=== PATIENT | male | born 1975 | race Caucasian/White ===

== ENCOUNTER 2017-10-18 11:00 | Outpatient (RCR) | payer OTHER, SELFPAY ==
--- NOTE | 2017-09-28 12:49 | HP.PTEVAL_ITS ---
Patient's Visit Information SULEMA DESHPANDE is a 42 year old M referred to Physical Therapy by Gustavo Cadena with a diagnosis of Right Shoulder Strain. Date of Evaluation: 09/28/17 Physical Therapist: Anni Lloyd, PT - Visit Plan Frequency: 2x /Week Duration: 3 Weeks Plan: Therapeutic exercises and activties to target BUE, specifically RUE, strength, endurance and ROM. Modalities and Manual as needed to decrease pain and increase ROM. Incorporate HEP to promote maintainence and independence. - Subjective Subjective: Patient presents in therapy today with chief complaint of right shoulder pain. He reports that initial injury was back in college but noticing pain 6 months ago. States the reaching fast to catch a tennis ball causes horrible pain, reaching up to close the sun roof and jerking motions increase pain. He is unable to throw overhead and needs to throw underhand with his daughter. He feels like his strength is down and doesnt feel confident in the motion. Reports no known mechanism of injury and thought he was sleeping on it wrong. Over the last couple weeks noticing popping more in the shoulder. On occasion will have slight numbness and tingling down the arm. Has not done anything for the pain. No X-ray or MRI. PMHx: No reported heart, respiratory, neuro or musculoskeletal conditions. Have bad acid reflux - Pain right shoulder Pain Intensity (Out of 10): 1 Pain Intensity Range: 1, 9 Comment: quick reaching movements increase pain - Objective Posture: Sitting upright with shoulders squared. Left shoulder slightly lower than right. Sensation: Intact to light touch. Appearance: No apparent swelling. Palpation: No tenderness or pain to palpation of biceps, shoulder or tricep area. Range of Motion: Left shoulder abduction 170*, flexion 180*, extension 70*, IR 90*, ER 70* Right shoulder abduction 75*, flexion 140*, extension 55*, IR 50*, ER 35*; PROM of left shoulder limited due to patient muscle guarding. Slight popping sensation with passive motion. Strength: BUE grossly 5/5 except right shoulder flexion 4/5, right shoulder abduction 4-/5, B IR 4+/5 and B ER 4-/5; B middle trap 4/5, R lower trap 3/5, B rhomboids 4/5. Functional Mobility: Difficulty reaching overhead using compensatory movements including shrugging shoulder up to help reach on shelf. Special Tests: Patient showing positive signs for subscapularis involvement - Special Tests R Shoulder Lift Off Test - Subscapular Tear: Positive R Shoulder Empty Can - SS: Positive R Shoulder Belly Press - SupScap: Negative R Shoulder Neer - Impingement: Negative R Shoulder Biceps Load Test - Labrum: Negative - Goals Goal 1:: Patient will increase R shoulder ROM to match left shoulder for improved mobility Goal Time Frame: 2-4 Weeks Goal 2:: Patient will increase R shoulder strength grossly 5/5 for improved performance with ADLs Goal Time Frame: 2-4 Weeks Goal 3:: Patient will reach overhead to place an object on the shelf 5 consecutive repetitions without compensatory movements or pain Goal Time Frame: 2-4 Weeks Goal 4:: Patient will demonstrate independence with HEP Goal Time Frame: 2-4 Weeks - Rehabilitation Potential Physical Therapy Diagnosis: Muscle Weakness, Limited Range of Motion Rehabilitation Potential: Fair - Anticipated Interventions Patient/Client Instruction: Educate patient on: Condition, Plan of Care For the Purpose of:: To decrease pain, To increase ROM, To improve muscle performance and motor function, To improve ability to perform ADL's, To improve ability of physical actions for home/community/work/leisure, To increase flexibility/ROM Therapeutic Exercise to Include: Strength training, Endurance training, Body mechanics, Postural training, Flexibilty training, Passive ROM, Active ROM, Scapular Strength/Stabilization For the Purpose of:: To increase ROM, To improve muscle performance and motor function, To improve ability to perform ADL's, To improve ability of physical actions for home/community/work/leisure, To increase flexibility/ROM Functional Training to Include: ADL Training For the Purpose of:: To improve muscle performance and motor function, To improve ability to perform ADL's Comment: massage not covered by insurance For the Purpose of:: To decrease pain, To increase ROM Iontophoresis (with Dexamethozone, with Acetic acid): No - not covered by insurance For the Purpose of:: To decrease pain, To increase ROM, To increase flexibility/ ROM Thank you for the opportunity to evaluate your patient. For Medicare and Medicare HMO plans, please review the plan of care and approve it. It will need to be FAXED BACK to us at [phone] for Medicare purposes. Please let me know if there are questions or concerns regarding this plan of care. Physician Signature: Date:
--- NOTE | 2017-10-18 11:28 | HP.PTDCSUM_ITS ---
HP - PT D/C Summary It has been my pleasure to treat SULEMA DESHPANDE under orders from Gustavo Cadena, for the diagnosis of Right Shoulder Strain for a total of 7 visit(s ). Discharge Date: Please see the following information for a summary of their discharge status. - Subjective Subjective: I am no worse, but i am not really better either - Pain right shoulder Pain Intensity (Out of 10): 1 - Overall Improvement % Improvement: 0 - Objective Objective/Function: R shoulder ROM: flex= 137, abd= 95, ER= 33, IR is moderately limited. R shoulder MMT: abd and ER= 4-/5, flex and IR 5/5. R shoulder pain ranges /10 to 9/10. Pt has remained relatively the same since beginning Rx - Goals Goal 1:: Patient will increase R shoulder ROM to match left shoulder for improved mobility Goal Progress: Not Progressing Goal 2:: Patient will increase R shoulder strength grossly 5/5 for improved performance with ADLs Goal Progress: Not Progressing Goal 3:: Patient will reach overhead to place an object on the shelf 5 consecutive repetitions without compensatory movements or pain Goal Progress: Not Progressing Goal 4:: Patient will demonstrate independence with HEP Goal Progress: Goal Met - Plan Plan: discontinue, RTD - D/C Information If there are questions or concerns regarding this patient's physical therapy, please feel free to call me at [phone]. Thank you for the referral of this patient. Sincerely, Aaron Aguillon, PT,
== END 2017-10-18 11:30 | disposition home or self-care (01) ==
LOC: PT 11:00
PROVIDERS: Family Provider Family Medicine; PCP Family Medicine; Visit Provider Family Medicine
DX: S46.911D Strain of unspecified muscle, fascia and tendon at shoulder and upper arm level, right arm, subsequent encounter (principal)
CPT/HCPCS: 97110; 97140; 97161; 97162; 97530

== ENCOUNTER → 2019-10-21 | Outpatient (CLI) | payer OTHER, SELFPAY ==
[2013-11-13 21:20] VITALS: BMI 29.9
--- NOTE | 2019-10-21 | GASB_PTH ---
PATIENT: SULEMA DESHPANDE LOC: [facility] #:[id number] AGE/SX: 44/M ROOM: RE10/21/[address]: Dr. Mata Krishnan MD : 1975 BED: DIS: 10/21/2019 SPEC #: [id number] RECD: 10/21/19 15:06 STATUS: BRANDIE REGINA #: [id number] CAITLYN: 10/21/19 00:[address]: Mata Krishnan DEPT: SURGICAL PATHOLOGY RECD BY: Bartolo Uribe ENTERED: 10/22/19 08:47 SP TYPE: Gastric Bx OTHR DR: Dr. Gustavo Cadena MD Tissues: A - Gastric mucous membrane B - Esophagus, NOS C - Esophagus, NOS Procedures: Surgery Specimen Level IV HEADER OPERATION: EGD / colonoscopy PRE-OP DIAGNOSIS: K92.1, K62.5, K21.9 TISSUE SUBMITTED: A - Antral biopsy H/H, B - Distal esophageal biopsy, C - Mid esophageal biopsy MICROSCOPIC DIAGNOSIS A. Antral biopsy: Mild gastritis. See microscopic description and comment. B. Distal esophageal biopsy: A fragment of squamous epithelium with changes consistent with gastroesophageal reflux disease. C. Mid esophagus, biopsy: Fragments of squamous epithelium, no pathologic diagnosis. SJ:rg 10/23/19 COMMENT A. The results of immunohistochemistry for Helicobacter pylori will be reported separately ([id number]). MICROSCOPIC DESCRIPTION Slides are reviewed. A. The specimen shows fragments of gastric mucosa with chronic inflammatory cell infiltrates in the lamina propria consisting of lymphocytes and plasma cells, consistent with mild chronic gastritis. GROSS DESCRIPTION A - Received in fixative is one container labeled with the patient's name and designated antral biopsy. The specimen consists of one irregular fragment of light price soft tissue that measures 0.3 x 0.2 x 0.1 cm. The specimen is totally submitted in one cassette. B - Received in fixative is one container labeled with the patient's name and designated distal esophageal biopsy. The specimen consists of one irregular fragment of light price soft tissue that measures 0.3 x 0.2 x 0.1 cm. The specimen is totally submitted in one cassette. C - Received in fixative is one container labeled with the patient's name and designated mid esophagus biopsy. The specimen consists of two irregular fragments of light price soft tissue that in aggregate measure 0.5 x 0.3 x 0.1 cm. The specimen is totally submitted in one cassette. / SJ:rg 10/22/19 TC:3 CPT: 82764 x3
--- NOTE | 2019-10-21 | IMM_PTH ---
PATIENT: SULEMA DESHPANDE LOC: [facility] U#:[id number] AGE/SX: 44/M ROOM: RE10/21/[address]: Dr. Mata Krishnan MD : 1975 BED: DIS: 10/21/2019 SPEC #: [id number] RECD: 10/22/19 09:36 STATUS: BRANDIE REMary #: [id number] CAITLYN: 10/21/19 00:[address]: Mata Krishnan DEPT: IMMUNOHISTOCHEMISTRY RECD BY: Ruby Triplett ENTERED: 10/22/19 09:36 SP TYPE: IMMUNO OTHR DR: Dr. Gustavo Cadena MD Tissues: A - Stomach, NOS Procedures: H Pylori (initial) PHYSICIAN & INSTITUTION [place] [id number] SPECIMEN INFORMATION: Tissue Source: A - Antral biopsy Clinical Info: K92.1, K62.5, K21.9 Specimen Number: [id number] CPT code: 76517 METHODOLOGY: Deparaffinized sections of prefer/formalin-fixed tissue or PAP/DQ stained slides are incubated with monoclonal/polyclonal antibodies/oligonucleotide probes. Localization is made via biotin free immunoperoxidase method. Appropriate controls are performed and reacted as expected. Results on target cell population are indicated in the following table: RESULTS: ANTIBODY / CLONE RESULT Block A H Pylori (polyclonal) negative These tests were developed and their performance characteristics determined by [facility]. They may not have been cleared or approved by the [place]. Food and Drug Administration. The FDA has determined that such clearance or approval is not necessary. INTERPRETATION: A. Antral biopsy: Negative for Helicobacter pylori organisms. SJ:mao 10/23/19
== END | disposition home or self-care (01) ==
LOC: LABSPEC 16:03
PROVIDERS: PCP Family Medicine; Referring Provider Surgery; Visit Provider Surgery
DX: K29.70 Gastritis, unspecified, without bleeding (principal); K21.9 Gastro-esophageal reflux disease without esophagitis
CPT/HCPCS: 88305; 88342